=== PATIENT | female | born 1990 | race Caucasian/White ===

== ENCOUNTER → 2017-10-18 | Outpatient (CLI) | payer BC ==
[~2017-10-18] MED LIST: CITA40TA4; LISD70CA PO; MULT-506 PO
== END | disposition home or self-care (01) ==
LOC: C.LABPBG 12:00
PROVIDERS: ATTEND Obstetrics & Gynecology
DX: N92.6 Irregular menstruation, unspecified (principal)

== ENCOUNTER → 2017-10-19 | Outpatient (CLI) | payer BC | END | disposition home or self-care (01) | LOC: C.PAPS 18:13 | PROVIDERS: ATTEND Obstetrics & Gynecology | DX: Z01.419 Encounter for gynecological examination (general) (routine) without abnormal findings (principal) ==

== ENCOUNTER 2018-11-19 17:21 | Inpatient (IN) ==
[2018-11-19] MEDS ORDERED: OXYTOCIN 30 UNITS/500 ML BAG IV PRN (18:14)
[2018-11-19] MEDS ORDERED: miSOPROStol 200 MCG TAB PV ONE (18:21)
--- NOTE | 2018-11-19 19:14 | History & Physical Report ---
Date of Service November 19, 2018 Assessment & Plan (1) demise, greater than 22 weeks, antepartum, single gestation: Will induce labor with misoprostol. We will do an 800 mcg loading dose then 400 mg every 3 hours as needed to induce labor. Laboratory evaluation including a cell free DNA screen and torch titer have been ordered. Epidural for pain as needed. All questions answered of the patient. History of Present Illness Chief Complaint: demise Primary Care Provider: Masoud Castro MD The patient is a 28-year-old 2 para 0 at 24 weeks and 6 days who presents today for induction for demise. Patient was seen earlier today for decreased movement where the diagnosis was made. Treatment options were discussed and the patient presents today for induction Allergies Allergy/AdvReac Type Severity Reaction Status Date / Time codeine Allergy Verified 11/16/18 08:53 Home Medications Home Medications Medication Instructions Recorded Confirmed Type PNV cmb#95-ferrous fumarate-FA 1 tab PO QAM 07/27/18 11/16/18 History [] dicyclomine PO 11/16/18 11/16/18 History ranitidine 150 mg tablet 150 mg PO DAILY 11/16/18 11/16/18 History Patient History Medical History History of gastric ulcer No significant past medical history Varicella Surgical History S/P colonoscopy S/P endoscopy S/P wisdom tooth extraction Family History Grandmother (Maternal) Ovarian cancer Mother Hypothyroidism Multiple gestation Social History Preferred Language: [place] Portuguese Tutor Required: No marital status: Current Living Situation: Spouse Current Living Situation Comment: spouse, 3 dogs, 2 cats Other Information That Helps Us Care for You: No Feels Safe at Home: Yes Safety Concerns: Feels Safe At This Time Smoking Status: Former smoker Age Started Using Tobacco: 17 ; Age Quit Using Tobacco: 24 ; Hx Alcohol Use: No Hx Substance Use: No Physical Exam Constitutional: WD/WN, vitals as above Respiratory: Auscultation: lungs clear to auscultation bilaterally Cardiovascular: RRR, no murmur, no edema Extremities: no calf tenderness Genitourinary: Cervix: Long thick and closed, Results & Data Vital Signs (Past 12 Hours) Vital Signs Temp Resp 11/19/18 17:39 98.4 F 20
[2018-11-19 19:31] LABS: Hematocrit (blood only) 33.6 % (37-47); Hemoglobin 11.9 g/dL (12.0-16.0); Mean Corpuscular Volume 89.1 fL (80-100); Mean Platelet Volume 10.1 fL (7.4-10.4); Platelet Count 161 K/uL (130-400); RDW Coefficient of Variation 12.4 % (11.5-14.5); RDW Standard Deviation 39.5 fL (36.4-46.3); Red Blood Count 3.77 M/uL (4.2-5.4); White Blood Count 10.29 K/uL (4.8-10.8)
[2018-11-19 19:43] LABS: Mean Corpuscular Hgb Conc 35.4 g/dL (32-36)
[2018-11-19] MEDS: LACTATED RINGER'S 1,000 ML IV PRN ×2 (22:44→23:55)
[2018-11-19] MEDS ORDERED: ePHEDrine sulfate 50 MG/ML AMP ONE (22:54)
[2018-11-19] MEDS ORDERED: BUPIVACAINE 0.25% 30 ML VIAL ONE (22:54)
[2018-11-19] MEDS ORDERED: fentaNYL 2MCG/ML ROPIV 1.25MG/ML 100 ML BAG EPI ONE (22:55)
[2018-11-19] MEDS ORDERED: fentaNYL citrate 100 MCG/2 ML VIAL ONE (22:55)
[2018-11-19] MEDS ORDERED: PROMETHAZINE HCL 25 MG in SODIUM CHLORIDE 0.9% 50 ML IV PRN (23:21)
[2018-11-19] MEDS ORDERED: NALOXONE HCL 1 MG in SODIUM CHLORIDE 0.9% 1000ML 1,000 ML IV PRN (23:21)
[2018-11-19] MEDS ORDERED: DiphenhydrAMINE HCL 50 MG/ML VIAL IV PRN (23:21)
[2018-11-19] MEDS ORDERED: ePHEDrine sulfate 50 MG/ML AMP IV PRN (23:21)
[2018-11-19] MEDS ORDERED: MIDAZOLAM HCL 1 MG/ML 2ML VIAL ONE (23:21)
[2018-11-19] MEDS ORDERED: ONDANSETRON INJ 2 MG/ML 2 ML VIAL IV PRN (23:21)
[2018-11-19] MEDS ORDERED: NALOXONE HCL 0.4 MG/1 ML VIAL/CARP IV PRN (23:21)
[2018-11-19] MEDS ORDERED: NALBUPHINE HCL INJ 10 MG/ML AMP IV PRN (23:21)
--- NOTE | 2018-11-19 23:25 | Anesthesiology Consultation ---
Date of Service November 19, 2018 Assessment & Plan (1) Encounter for pre-operative examination: Chart Review Chart Review: Patient NOT seen in Pre Admission Testing Consults Requested none ASA ASA2 Proposed Anesthesia Anesthesia Type: Labor Epidural and CSE Risk / Benefits Reviewed With: PT / POA / Parent / Guardian, Accepts Plan and Informed Consent Obtained History Height/Weight Height: 5 ft 2 in Weight: 64.864 kg Allergies Allergy/AdvReac Type Severity Reaction Status Date / Time codeine Allergy Verified 11/16/18 08:53 Medications Home Medications Medication Instructions Recorded Confirmed Last Taken vit-iron fum-folic ac 1 tab PO DAILY 11/19/18 11/19/18 11/18/18 08:00 [ Vitamin] Active Medications Generic Name Dose Route Start Last Admin Trade Name Freq PRN Reason Stop Dose Admin Lactated Ringer's 1,000 mls @ 125 mls/hr 11/19/18 18:14 11/19/18 22:44 Lr IV 11/21/18 18:13 999 mls/hr .Q8H PRN Administration L&D Protocol Protocol NPO Date Last Intake of Fluids: 11/19/18 Time Last Intake of Fluids: 22:30 Date Last Intake of Solids: 11/19/18 Time Last Intake of Solids: 09:00 Past Medical History Medical History History of gastric ulcer No significant past medical history Varicella Exercise / Class Metabolic Activity II 4-5 Yardwork/Stairs/Walk up hill Past Family History Family History Grandmother (Maternal) Ovarian cancer Mother Hypothyroidism Multiple gestation Past Surgical History Surgical History S/P colonoscopy S/P endoscopy S/P wisdom tooth extraction Past Anesthesia History No Hx of Anesthesia Complications History of PONV No Hx of PONV and No Hx of Motion Sickness Social History Smoking Status: Former smoker Hx Alcohol Use: No Hx Substance Use: No substance use type: does not use Review of Systems no chest pain or sob Physical Exam Vital Signs Last Vital Signs Temp 37.0 C 11/19/18 19:23 Pulse 99 H 11/19/18 23:29 Resp 16 11/19/18 19:23 BP 116/63 11/19/18 23:19 Pulse Ox 98 11/19/18 23:29 Testing Laboratory Results 11/19/18 19:12
[2018-11-20] MEDS: miSOPROStol 200 MCG TAB PV PRN ×3 (00:12→11:09)
--- NOTE | 2018-11-20 00:15 | Labor Progress Brief Note ---
Date of Service November 20, 2018 Subjective Comfortable after epidural Assessment & Plan (1) demise, greater than 22 weeks, antepartum, single gestation: - doing well - continue with medication Physical Exam Genitourinary: Misoprostol 400mcg placed Results & Data Vital Signs (Past 12 Hours) Vital Signs Temp Pulse Resp BP Pulse Ox 11/20/18 00:10 103 H 159/58 H 11/20/18 00:09 100 H 100 11/20/18 00:08 93 H 109/52 L 11/20/18 00:04 97 H 99 11/19/18 23:59 102 H 108/57 L 96 11/19/18 23:57 97 H 104/59 L 11/19/18 23:55 102 H 107/56 L 11/19/18 23:54 103 H 97 11/19/18 23:53 90 110/68 11/19/18 23:51 100 H 108/59 L 11/19/18 23:49 103 H 120/63 96 11/19/18 23:47 102 H 115/60 11/19/18 23:45 100 H 112/58 L 11/19/18 23:44 103 H 96 11/19/18 23:43 106 H 111/58 L 11/19/18 23:41 105 H 118/58 L 94 11/19/18 23:39 105 H 98 11/19/18 23:34 127 H 99 11/19/18 23:29 99 H 98 11/19/18 23:24 100 H 99 11/19/18 23:19 92 H 116/63 98 11/19/18 19:23 98.6 F 97 H 16 109/68 11/19/18 17:39 98.4 F 20
[2018-11-20] MEDS ORDERED: MIDAZOLAM HCL 1 MG/ML 2ML VIAL IV STA (00:26)
[2018-11-20] MEDS ORDERED: ACETAMINOPHEN 325 MG TAB PO PRN ×2 (04:28→17:00)
[2018-11-20] MEDS ORDERED: ACETAMINOPHEN 325 MG TAB PO ONE (04:30)
[2018-11-20] MEDS: LACTATED RINGER'S 1,000 ML IV PRN ×2 (05:28→11:46)
--- NOTE | 2018-11-20 06:37 | Labor Progress Brief Note ---
Date of Service November 20, 2018 Subjective no c/o Assessment & Plan (1) demise, greater than 22 weeks, antepartum, single gestation: - pt with elevated temperature - likely side effect of high dose cytotec - tylenol for fever - continue plan - doing well Physical Exam Genitourinary: Cervix: 1/50%, cytotec 400mcg placed Results & Data Vital Signs (Past 12 Hours) Vital Signs Temp Pulse Resp BP Pulse Ox 11/20/18 06:29 106 H 111/63 96 11/20/18 06:24 104 H 95 11/20/18 06:19 109 H 95 11/20/18 06:15 127 H 94/60 L 11/20/18 06:14 133 H 96 11/20/18 06:09 111 H 96 11/20/18 06:04 103 H 96 11/20/18 06:00 18 11/20/18 05:59 110 H 110/58 L 95 11/20/18 05:54 111 H 96 11/20/18 05:49 107 H 95 11/20/18 05:44 106 H 117/58 L 95 11/20/18 05:39 103 H 95 11/20/18 05:34 104 H 95 11/20/18 05:30 102.9 F H 18 11/20/18 05:29 120 H 121/58 L 96 11/20/18 05:24 109 H 97 11/20/18 05:19 111 H 96 11/20/18 05:14 113 H 116/62 96 11/20/18 05:09 106 H 95 11/20/18 05:04 107 H 95 11/20/18 05:00 100 H 18 114/55 L 11/20/18 04:59 103 H 95 11/20/18 04:54 99 H 95 11/20/18 04:49 101 H 96 11/20/18 04:45 96 H 117/59 L 11/20/18 04:44 97 H 96 11/20/18 04:39 94 H 95 11/20/18 04:34 106 H 96 11/20/18 04:30 20 11/20/18 04:29 98 H 109/55 L 94 11/20/18 04:24 95 H 94 11/20/18 04:19 94 H 95 11/20/18 04:14 97 H 112/59 L 95 11/20/18 04:10 102.7 F H 20 11/20/18 04:09 98 H 95 11/20/18 04:04 120 H 96 11/20/18 03:59 101 H 114/57 L 95 11/20/18 03:54 118 H 96 11/20/18 03:49 104 H 95 11/20/18 03:44 99 H 108/55 L 95 11/20/18 03:39 101 H 94 11/20/18 03:34 97 H 95 11/20/18 03:30 96 H 111/56 L 11/20/18 03:29 99 H 96 11/20/18 03:24 101 H 96 11/20/18 03:19 102 H 95 11/20/18 03:15 102.6 F H 91 H 16 116/56 L 11/20/18 03:14 99 H 96 11/20/18 03:09 99 H 95 11/20/18 03:04 103 H 95 11/20/18 03:00 16 11/20/18 02:59 96 H 107/55 L 96 11/20/18 02:54 92 H 95 11/20/18 02:49 116 H 96 11/20/18 02:47 105 H 120/54 L 11/20/18 02:44 106 H 98/49 L 95 11/20/18 02:39 101 H 95 11/20/18 02:34 101 H 95 11/20/18 02:29 100 H 99/52 L 94 11/20/18 02:24 95 H 94 11/20/18 02:19 97 H 95 11/20/18 02:14 97 H 95/53 L 95 11/20/18 02:09 96 H 95 11/20/18 02:04 94 H 95 11/20/18 02:00 16 11/20/18 01:59 95 H 96/50 L 95 11/20/18 01:54 97 H 95 11/20/18 01:49 90 96 11/20/18 01:45 100 H 100/54 L 11/20/18 01:44 94 H 96 11/20/18 01:39 89 96 11/20/18 01:34 90 97 11/20/18 01:29 91 H 93/55 L 98 11/20/18 01:24 88 97 11/20/18 01:19 91 H 97 11/20/18 01:14 91 H 95/54 L 97 11/20/18 01:09 86 97 11/20/18 01:04 87 99 11/20/18 01:00 16 11/20/18 00:59 90 93/54 L 99 11/20/18 00:54 85 98 11/20/18 00:49 100 H 97 11/20/18 00:44 88 106/56 L 98 11/20/18 00:39 87 98 11/20/18 00:34 84 98 11/20/18 00:29 85 16 106/58 L 98 11/20/18 00:24 87 96 11/20/18 00:19 88 97 11/20/18 00:14 92 H 108/57 L 96 11/20/18 00:10 103 H 159/58 H 11/20/18 00:09 100 H 100 11/20/18 00:08 93 H 109/52 L 11/20/18 00:04 97 H 99 11/19/18 23:59 102 H 16 108/57 L 96 11/19/18 23:57 97 H 104/59 L 11/19/18 23:55 102 H 107/56 L 11/19/18 23:54 103 H 97 11/19/18 23:53 90 110/68 11/19/18 23:51 100 H 108/59 L 11/19/18 23:49 103 H 120/63 96 11/19/18 23:47 102 H 115/60 11/19/18 23:45 100 H 112/58 L 11/19/18 23:44 103 H 96 11/19/18 23:43 106 H 111/58 L 11/19/18 23:41 105 H 118/58 L 94 11/19/18 23:39 105 H 98 11/19/18 23:34 127 H 99 11/19/18 23:29 99 H 98 11/19/18 23:24 100 H 99 11/19/18 23:19 100.0 F H 92 H 18 116/63 98 11/19/18 19:23 98.6 F 97 H 16 109/68
[2018-11-20] MEDS: fentaNYL 2MCG/ML ROPIV 1.25MG/ML 100 ML BAG EPI PRN ×2 (08:08→13:46)
[2018-11-20] MEDS: ACETAMINOPHEN 325 MG TAB PO SCH ×2 (08:47→13:12)
[2018-11-20] MEDS ORDERED: LORazepam 1 MG TAB PO STA (11:21)
--- NOTE | 2018-11-20 11:22 | Labor Progress Brief Note ---
Date of Service November 20, 2018 Subjective Feeling crampy on L side; will reposition to allow epidural to become more dense on that side. Has many questions, appropriate tearfulness. Emotional support provided. Accepts check of cervix and next dose of cytotec if needed. Expresses interest in leaving hospital as soon as is safe after delivery. Interested in ativan if able to have; says she "Doesn't want to feel this anymore" and was given ativan by PCP that she has with her and wanted to take. Discussed using hospital med and not home meds but glad to prescribe for her comfort. Assessment & Plan (1) demise, greater than 22 weeks, antepartum, single gestation: Continued fever likely due to cytotec in high doses per IUFD induction. No symptoms of chills, no odor vaginally, no acute distress. Emotionally appropriate with supportive and railway shunter at bedside. Progressing now to near the point of delivery. Suspect that rupture will soon occur, and patient counseled to expect this gush of fluid. She will notify us if she feels that happen as she is also counseled that progress from that point may be rapid. If needed, plan is 400mcg again in 4 hours. Physical Exam Genitourinary: Manual OB Exam: + cervical dilation 8 cm, + cervical effacement 100% and + station (Taut bulging bag to +1, unable to palpate presenting part w/o risk rupture) OB Exam Monitor Tracing: + external uterine monitor used Results & Data Vital Signs (Past 12 Hours) Vital Signs Temp Pulse Resp BP Pulse Ox 11/20/18 11:16 100 H 120/65 11/20/18 11:15 101 H 95 11/20/18 11:10 103 H 95 11/20/18 11:05 113 H 96 11/20/18 11:00 104 H 96 11/20/18 10:55 98 H 94 11/20/18 10:50 99 H 96 11/20/18 10:46 97 H 117/63 11/20/18 10:45 97 H 96 11/20/18 10:40 104 H 94 11/20/18 10:35 104 H 95 11/20/18 10:30 108 H 95 11/20/18 10:25 99 H 96 11/20/18 10:21 95 H 106/63 09/02/19 10:20 105 H 95 11/20/18 10:15 115 H 97 11/20/18 10:10 91 H 96 11/20/18 10:05 96 H 95 11/20/18 10:00 94 H 95 11/20/18 09:55 99 H 95 11/20/18 09:50 92 H 95 11/20/18 09:47 91 H 118/56 L 11/20/18 09:45 94 H 96 11/20/18 09:40 89 95 11/20/18 09:35 89 95 11/20/18 09:30 96 H 96 11/20/18 09:25 101 H 96 11/20/18 09:20 104 H 96 11/20/18 09:15 96 H 115/59 L 97 11/20/18 09:10 92 H 97 11/20/18 09:05 92 H 96 11/20/18 09:00 98 H 97 11/20/18 08:55 99 H 95 11/20/18 08:50 101 H 95 11/20/18 08:45 96 H 95 11/20/18 08:44 108 H 113/58 L 11/20/18 08:40 100 H 96 11/20/18 08:35 97 H 95 11/20/18 08:30 97 H 97 11/20/18 08:29 92 H 110/56 L 11/20/18 08:25 102 H 96 11/20/18 08:20 91 H 94 11/20/18 08:15 102.0 F H 101 H 20 114/59 L 96 11/20/18 08:10 93 H 96 11/20/18 08:05 96 H 96 11/20/18 08:00 93 H 96 11/20/18 07:59 93 H 113/63 11/20/18 07:55 98 H 97 11/20/18 07:50 102 H 95 11/20/18 07:44 94 H 114/62 96 11/20/18 07:39 98 H 96 11/20/18 07:34 112 H 96 11/20/18 07:29 104 H 114/62 97 11/20/18 07:24 94 H 95 11/20/18 07:19 98 H 95 11/20/18 07:14 97 H 116/59 L 95 11/20/18 07:09 104 H 96 11/20/18 07:04 102 H 97 11/20/18 07:01 102.6 F H 22 11/20/18 06:59 102 H 111/59 L 96 11/20/18 06:54 100 H 96 11/20/18 06:49 114 H 96 11/20/18 06:44 105 H 113/62 96 11/20/18 06:39 107 H 96 11/20/18 06:34 110 H 96 11/20/18 06:29 106 H 111/63 96 11/20/18 06:24 104 H 95 11/20/18 06:19 109 H 95 11/20/18 06:15 127 H 94/60 L 11/20/18 06:14 133 H 96 11/20/18 06:09 111 H 96 11/20/18 06:04 103 H 96 11/20/18 06:00 18 11/20/18 05:59 110 H 110/58 L 95 11/20/18 05:54 111 H 96 11/20/18 05:49 107 H 95 11/20/18 05:44 106 H 117/58 L 95 11/20/18 05:39 103 H 95 11/20/18 05:34 104 H 95 11/20/18 05:30 102.9 F H 18 11/20/18 05:29 120 H 121/58 L 96 11/20/18 05:24 109 H 97 11/20/18 05:19 111 H 96 11/20/18 05:14 113 H 116/62 96 11/20/18 05:09 106 H 95 11/20/18 05:04 107 H 95 11/20/18 05:00 100 H 18 114/55 L 11/20/18 04:59 103 H 95 11/20/18 04:54 99 H 95 11/20/18 04:49 101 H 96 11/20/18 04:45 96 H 117/59 L 11/20/18 04:44 97 H 96 11/20/18 04:39 94 H 95 11/20/18 04:34 106 H 96 11/20/18 04:30 20 11/20/18 04:29 98 H 109/55 L 94 11/20/18 04:24 95 H 94 11/20/18 04:19 94 H 95 11/20/18 04:14 97 H 112/59 L 95 11/20/18 04:10 102.7 F H 20 11/20/18 04:09 98 H 95 11/20/18 04:04 120 H 96 11/20/18 03:59 101 H 114/57 L 95 11/20/18 03:54 118 H 96 11/20/18 03:49 104 H 95 11/20/18 03:44 99 H 108/55 L 95 11/20/18 03:39 101 H 94 11/20/18 03:34 97 H 95 11/20/18 03:30 96 H 111/56 L 11/20/18 03:29 99 H 96 11/20/18 03:24 101 H 96 11/20/18 03:19 102 H 95 11/20/18 03:15 102.6 F H 91 H 16 116/56 L 11/20/18 03:14 99 H 96 11/20/18 03:09 99 H 95 11/20/18 03:04 103 H 95 11/20/18 03:00 11/20/18 02:59 96 H 107/55 L 96 11/20/18 02:54 92 H 95 11/20/18 02:49 116 H 96 11/20/18 02:47 105 H 120/54 L 11/20/18 02:44 106 H 98/49 L 95 11/20/18 02:39 101 H 95 11/20/18 02:34 101 H 95 11/20/18 02:29 100 H 99/52 L 94 11/20/18 02:24 95 H 94 11/20/18 02:19 97 H 95 11/20/18 02:14 97 H 95/53 L 95 11/20/18 02:09 96 H 95 11/20/18 02:04 94 H 95 11/20/18 02:00 16 11/20/18 01:59 95 H 96/50 L 95 11/20/18 01:54 97 H 95 11/20/18 01:49 90 96 11/20/18 01:45 100 H 100/54 L 11/20/18 01:44 94 H 96 11/20/18 01:39 89 96 11/20/18 01:34 90 97 11/20/18 01:29 91 H 93/55 L 98 11/20/18 01:24 88 97 11/20/18 01:19 91 H 97 11/20/18 01:14 91 H 95/54 L 97 11/20/18 01:09 86 97 11/20/18 01:04 87 99 11/20/18 01:00 16 11/20/18 00:59 90 93/54 L 99 11/20/18 00:54 85 98 11/20/18 00:49 100 H 97 11/20/18 00:44 88 106/56 L 98 11/20/18 00:39 87 98 11/20/18 00:34 84 98 11/20/18 00:29 85 16 106/58 L 98 11/20/18 00:24 87 96 11/20/18 00:19 88 97 11/20/18 00:14 92 H 108/57 L 96 11/20/18 00:10 103 H 159/58 H 11/20/18 00:09 100 H 100 11/20/18 00:08 93 H 109/52 L 11/20/18 00:04 97 H 99 11/19/18 23:59 102 H 16 108/57 L 96 11/19/18 23:57 97 H 104/59 L 11/19/18 23:55 102 H 107/56 L 11/19/18 23:54 103 H 97 11/19/18 23:53 90 110/68 11/19/18 23:51 100 H 108/59 L 11/19/18 23:49 103 H 120/63 96 11/19/18 23:47 102 H 115/60 11/19/18 23:45 100 H 112/58 L 11/19/18 23:44 103 H 96 11/19/18 23:43 106 H 111/58 L 11/19/18 23:41 105 H 118/58 L 94 11/19/18 23:39 105 H 98 11/19/18 23:34 127 H 99 11/19/18 23:29 99 H 98 11/19/18 23:24 100 H 99 11/19/18 23:19 100.0 F H 92 H 18 116/63 98
[2018-11-20] MEDS ORDERED: OXYTOCIN IV SCH (15:30)
[2018-11-20] MEDS ORDERED: LACTATED RINGER S IV SCH (15:30)
--- NOTE | 2018-11-20 15:38 | Delivery Summary ---
Vaginal Delivery Summary Date of Service November 20, 2018 Patient was examined and head of the infant was found to be at the labia. She was prepped for delivery and asked to give a pushing effort. She did push well and promptly delivered the head, shoulders, and remainder of the nonviable infant in a single effort. There were no signs of life in the . The infant appeared mildly macerated, with some cranial molding vs deformity. The amniotic fluid was slightly bloody and only mildly malodorous. The cord was clamped and cut. Dilute pitocin (100u in 1L) was ordered IV to aid in passage of the placenta. The patient was counseled that passage of the placenta may occur in minutes or hours, with a wide range of normal. The cord remains protruding from the vagina and terminated at a Alesha clamp. She is currently comfortable and she and her are grieving appropriately. Emotional support provided. Patient returned to a semi-maza's resting position, re- covered for modesty and comfort, and remains in good condition at this time.
[2018-11-20] MEDS ORDERED: SUPERCREAM 0.870% 15 GM JAR EXT PRN (17:00)
[2018-11-20] MEDS ORDERED: BENZOCAINE 20% AER SPR 82.5 GM CAN EXT PRN (17:00)
[2018-11-20] MEDS ORDERED: DIPHTHERIA/TETANUS/PERTUSSIS 0.5 ML SYR/VIAL IM ONE (17:00)
[2018-11-20] MEDS ORDERED: OXYCODONE/ACETAMINOPHEN 5mg/325mg TAB PO PRN (17:00)
[2018-11-20] MEDS ORDERED: HYDROCORTISONE ACETATE 25 MG SUPP PR PRN (17:00)
[2018-11-20 17:41] LABS: Hematocrit (blood only) 32.9 % (37-47); Hemoglobin 11.6 g/dL (12.0-16.0); Mean Corpuscular Hgb Conc 35.3 g/dL (32-36); Mean Corpuscular Volume 88.2 fL (80-100); RDW Coefficient of Variation 12.3 % (11.5-14.5); RDW Standard Deviation 39.2 fL (36.4-46.3); Red Blood Count 3.73 M/uL (4.2-5.4); White Blood Count 13.41 K/uL (4.8-10.8)
[2018-11-20 18:06] LABS: Mean Platelet Volume 10.4 fL (7.4-10.4); Platelet Count 95 K/uL (130-400)
[2018-11-20 18:07] LABS: Platelet Estimate Decreased (Normal)
[2018-11-20 19:22] LABS: Albumin Level 2.1 gm/dl (3.4-5.0); BUN Creatinine Ratio 13.7 (10-20); Calcium 8.1 mg/dl (8.5-10.1); Creatinine Clr Calc Pharmacy 80.5 ml/min; Est GFR (African American) 98.2; Est GFR (Non-African American) 84.7
[2018-11-20 19:25] LABS: Albumin Globulin Ratio 0.6 (0.9-2); Bilirubin,Total 0.7 mg/dl (0.2-1); Globulin 3.4 gm/dl (2.5-4.0); Total Protein 5.5 gm/dl (6.4-8.2)
--- NOTE | 2018-11-20 19:27 | Procedure Note ---
Procedure Note Date of Service November 20, 2018 Note WBC noted to be similar to earlier values, and suggest that fevers are truly 2/2 cytotec rather than infection. However, platelets noted to drop to 95. At this point I am concerned about DIC and also want to r/o preeclampsia. CMP, PT/PTT, INR, Fibrinogen ordered. Explained to patient I prefer to remove the remaining tissue without delay to interrupt any inflammatory process that may be driving a DIC picture. She is in agreement with attempt of manual removal and with D&C if needed. Epidural anesthesia in place. She requested that every possible attempt be made to avoid a transfer into an OR environment. Vagina and perineum prepped with betadine. A ring forcep was used to grasp a tip of placenta protruding into vagina, but this easily detached and did not result in delivery. Bedside ultrasound and banjo curette were readied, and a D&C was gently carried out under US guidance to retrieve the placenta. Several passes were required to deliver the entirety of the placenta, which was largely in one disk but did also yield a few smaller pieces and membranous tissue. At the end of curettage the uterus was empty and well contracted to 3cm below the umbilicus with no active lochia. The patient tolerated this extremely well. Placenta will be sent for pathology exam. Coding
[2018-11-20 19:28] LABS: Fibrinogen 176 mg/dl (184-400); INR 1.1 (0.9-1.1); Partial Thromboplastin Ratio 1.5; Partial Thromboplastin Time 41.6 Seconds (21.0-31.0); Prothrombin Time 11.6 Seconds (9.0-12.0)
--- NOTE | 2018-11-20 19:58 | Obstetrical Progress Note ---
Date of Service November 20, 2018 Assessment & Plan (1) demise, greater than 22 weeks, antepartum, single gestation: Now delivered of all POC. Labs, however, noted to show signs of consumptive coagulopathy with a low fibrinogen, as well as mild LFT elevation and a relative rise in creatinine. DIC can be precipitated by IUFD in situ and hopefully will show improvement now that all tissue removed and cytokine release / necrosis should stop. Also, It is difficult to say that she has preeclampsia with completely normal BP and good urine output, but these changes in labs are noted. Currently the patient is having minimal to no lochia and no other bleeding, so will observe for now and repeat all labs in 6 hours. Present on Admission?: Yes Subjective Patient is clinically stable per RN. No excessive lochia at this time. VSS. Results & Data Vital Signs (Past 12 Hours) Vital Signs Temp Pulse Resp BP Pulse Ox 11/20/18 19:41 70 123/79 11/20/18 19:26 76 121/81 11/20/18 19:20 71 93 11/20/18 19:15 80 94 11/20/18 19:10 81 93 11/20/18 19:05 75 93 11/20/18 19:00 76 94 11/20/18 18:55 85 94 11/20/18 18:50 80 94 11/20/18 18:46 80 119/73 11/20/18 18:45 81 93 11/20/18 17:55 100.0 F H 11/20/18 17:52 86 114/58 L 11/20/18 17:51 104 H 91 11/20/18 17:50 86 92 11/20/18 17:45 101 H 91 11/20/18 17:40 85 90 11/20/18 17:35 85 91 11/20/18 17:30 87 91 11/20/18 17:25 87 91 11/20/18 17:21 90 92 11/20/18 17:20 90 92 11/20/18 17:16 90 92 11/20/18 17:15 95 H 93 11/20/18 17:10 86 91 11/20/18 17:05 85 92 11/20/18 17:00 85 92 11/20/18 16:55 110 H 92 11/20/18 16:50 94 H 94 11/20/18 16:46 104 H 113/59 L 92 11/20/18 16:45 99 H 93 11/20/18 16:40 101 H 92 11/20/18 16:35 101 H 93 11/20/18 16:30 90 91 11/20/18 16:25 88 91 11/20/18 16:20 86 91 11/20/18 16:18 89 91 11/20/18 16:15 93 H 122/66 94 11/20/18 16:12 91 H 92 11/20/18 16:10 87 93 11/20/18 16:05 89 92 11/20/18 16:03 91 H 92 11/20/18 16:00 88 92 11/20/18 15:57 84 92 11/20/18 15:55 85 94 11/20/18 15:50 83 94 11/20/18 15:46 88 127/69 11/20/18 15:45 86 94 11/20/18 15:40 117 H 96 11/20/18 15:35 93 H 95 11/20/18 15:30 102 H 93 11/20/18 15:25 98 H 96 11/20/18 15:20 94 H 95 11/20/18 15:15 87 114/57 L 95 11/20/18 15:10 87 93 11/20/18 15:08 100.4 F H 18 11/20/18 15:05 91 H 95 11/20/18 15:00 86 94 11/20/18 14:55 105 H 97 11/20/18 14:50 88 97 11/20/18 14:45 82 112/57 L 96 11/20/18 14:40 83 94 11/20/18 14:35 85 94 11/20/18 14:30 85 95 11/20/18 14:25 90 96 11/20/18 14:20 87 95 11/20/18 14:15 83 107/55 L 97 11/20/18 14:10 106 H 97 11/20/18 14:05 94 H 96 11/20/18 14:00 99 H 96 11/20/18 13:55 93 H 95 11/20/18 13:50 97 H 96 11/20/18 13:46 100.2 F H 98 H 20 128/68 11/20/18 13:45 100 H 96 11/20/18 13:40 101 H 97 11/20/18 13:35 99 H 96 11/20/18 13:30 97 H 95 11/20/18 13:25 108 H 96 11/20/18 13:20 125 H 95 11/20/18 13:15 106 H 136/81 97 11/20/18 13:10 91 H 94 11/20/18 13:05 89 93 11/20/18 13:00 94 H 96 11/20/18 12:55 84 93 11/20/18 12:50 85 93 11/20/18 12:46 85 120/62 11/20/18 12:45 87 95 11/20/18 12:40 84 94 11/20/18 12:35 84 93 11/20/18 12:30 83 94 11/20/18 12:25 90 95 11/20/18 12:20 88 95 11/20/18 12:17 82 120/63 11/20/18 12:15 95 H 97 11/20/18 12:10 94 H 96 11/20/18 12:05 91 H 96 11/20/18 12:00 95 H 95 11/20/18 11:55 97 H 93 11/20/18 11:50 94 H 94 11/20/18 11:48 101.7 F H 20 11/20/18 11:46 93 H 118/60 11/20/18 11:45 90 94 11/20/18 11:40 108 H 95 11/20/18 11:35 123 H 96 11/20/18 11:30 104 H 96 11/20/18 11:25 100 H 94 11/20/18 11:20 102 H 96 11/20/18 11:16 100 H 120/65 11/20/18 11:15 101 H 95 11/20/18 11:10 103 H 95 11/20/18 11:05 113 H 96 11/20/18 11:00 104 H 96 11/20/18 10:55 98 H 94 11/20/18 10:50 99 H 96 11/20/18 10:46 97 H 117/63 11/20/18 10:45 97 H 96 11/20/18 10:40 104 H 94 11/20/18 10:35 104 H 95 11/20/18 10:30 108 H 95 11/20/18 10:25 99 H 96 11/20/18 10:21 95 H 106/63 11/20/18 10:20 105 H 95 11/20/18 10:15 115 H 97 11/20/18 10:10 91 H 96 11/20/18 10:05 96 H 95 11/20/18 10:00 94 H 95 11/20/18 09:55 99 H 95 11/20/18 09:50 92 H 95 11/20/18 09:47 91 H 118/56 L 11/20/18 09:45 94 H 96 11/20/18 09:40 89 95 11/20/18 09:35 89 95 11/20/18 09:30 96 H 96 11/20/18 09:25 101 H 96 11/20/18 09:20 104 H 96 11/20/18 09:15 96 H 115/59 L 97 11/20/18 09:10 92 H 97 11/20/18 09:05 92 H 96 11/20/18 09:00 98 H 97 11/20/18 08:55 99 H 95 11/20/18 08:50 101 H 95 11/20/18 08:45 96 H 95 11/20/18 08:44 108 H 113/58 L 11/20/18 08:40 100 H 96 11/20/18 08:35 97 H 95 11/20/18 08:30 97 H 97 11/20/18 08:29 92 H 110/56 L 11/20/18 08:25 102 H 96 11/20/18 08:20 91 H 94 11/20/18 08:15 102.0 F H 101 H 20 114/59 L 96 11/20/18 08:10 93 H 96 11/20/18 08:05 96 H 96 11/20/18 08:00 93 H 96 11/20/18 07:59 93 H 113/63 11/20/18 07:55 98 H 97 Laboratory Results Laboratory Results WBC 13.41 K/uL (4.8-10.8) H 11/20/18 17:17 RBC 3.73 M/uL (4.2-5.4) L 11/20/18 17:17 Hgb 11.6 g/dL (12.0-16.0) L 11/20/18 17:17 Hct 32.9 % (37-47) L 11/20/18 17:17 MCV 88.2 fL (80-100) 11/20/18 17:17 MCH 31.1 pg (25-34) 11/20/18 17:17 MCHC 35.3 g/dL (32-36) 11/20/18 17:17 RDW Std Deviation 39.2 fL (36.4-46.3) 11/20/18 17:17 RDW Coeff of [place] 12.3 % (11.5-14.5) 11/20/18 17:17 Plt Count 95 K/uL (130-400) L 11/20/18 17:17 MPV 10.4 fL (7.4-10.4) 11/20/18 17:17 Platelet Estimate Decreased (Normal) L 11/20/18 17:17 PT 11.6 Seconds (9.0-12.0) 11/20/18 18:49 INR 1.1 (0.9-1.1) 11/20/18 18:49 APTT 41.6 Seconds (21.0-31.0) H 11/20/18 18:49 PTT Ratio 1.5 11/20/18 18:49 Fibrinogen 176 mg/dl (184-400) L 11/20/18 18:49 Sodium 137 mmol/L (136-145) 11/20/18 18:54 Potassium 3.0 mmol/L (3.5-5.1) L 11/20/18 18:54 Chloride 105 mmol/L (98-107) 11/20/18 18:54 Carbon Dioxide 24 mmol/L (21-32) 11/20/18 18:54 Anion Gap 9.0 (3-11) 11/20/18 18:54 BUN 13 mg/dl (7-18) 11/20/18 18:54 Creatinine 0.92 mg/dl (0.6-1.2) 11/20/18 18:54 Est Cr Clr Drug Dosing 80.5 ml/min 11/20/18 18:54 Est GFR ( Amer) 98.2 11/20/18 18:54 Est GFR (Non-Af Amer) 84.7 11/20/18 18:54 BUN/Creatinine Ratio 13.7 (10-20) 11/20/18 18:54 Glucose 110 mg/dl (70-99) H 11/20/18 18:54 Calcium 8.1 mg/dl (8.5-10.1) L 11/20/18 18:54 Total Bilirubin 0.7 mg/dl (0.2-1) 11/20/18 18:54 AST 48 U/L (15-37) H 11/20/18 18:54 ALT 15 U/L (12-78) 11/20/18 18:54 Alkaline Phosphatase 135 U/L (45-117) H 11/20/18 18:54 Total Protein 5.5 gm/dl (6.4-8.2) L 11/20/18 18:54 Albumin 2.1 gm/dl (3.4-5.0) L 11/20/18 18:54 Globulin 3.4 gm/dl (2.5-4.0) 11/20/18 18:54 Albumin/Globulin Ratio 0.6 (0.9-2) L 11/20/18 18:54 CMV IgM Ab Cancelled 11/19/18 19:12 HSV I IgM Ab (IFA) Cancelled 11/19/18 19:12 HSV II IgM Ab (IFA) Cancelled 11/19/18 19:12 Rubella IgM Antibody Cancelled 11/19/18 19:12 Toxoplasma IgG Ab Cancelled 11/19/18 19:12 Toxoplasma IgM Ab Cancelled 11/19/18 19:12 Toxoplasma Note Cancelled 11/19/18 19:12 Genetic Analysis Reprt 11/19/18 19:12 PG Care Time/CCT Total # of Minutes Spent Total Time Spent with Patient: Total time spent is greater than 50% in coordination of care (as documented) at patient's floor/unit and/or counseling patient:
--- NOTE | 2018-11-20 20:56 | Anesthesia Procedure Note ---
Date of Service November 20, 2018 Anesthesia Post Epidural Note Vital Signs Vital Signs: Temp Pulse Resp BP Pulse Ox 37.8 C H 76 18 108/73 93 11/20/18 17:55 11/20/18 20:41 11/20/18 20:26 11/20/18 20:41 11/20/18 19:20 Pain Intensity Left Abdomen: Pain Intensity: 4 Notes Mental Status: alert / awake / arousable and participated in evaluation Patient Amnestic to Procedure: No Nausea / Vomiting: adequately controlled Pain: adequately controlled Airway Patency, RR, SpO2: stable & adequate BP & HR: stable & adequate Hydration State: stable & adequate Neuraxial Anesthesia: was administered and sensory block is resolving Anesthetic Complications: no major complications apparent and Pt Satisfied with anesthetic care Epidural: See Notes Notes: patient with low platelets, elevated ptt, low fibrinogen. pt being monitored overnight to ensure no DIC. Will keep epidural in place until labs normalize in order to decrease risk of epidural hematoma with epidural removal. will continue to monitor.
[2018-11-21] MEDS: IBUPROFEN 600 MG TAB PO PRN ×2 (01:06→07:59)
[2018-11-21 02:20] LABS: Hemoglobin 11.8 g/dL (12.0-16.0); Mean Corpuscular Hgb Conc 35.8 g/dL (32-36); Mean Corpuscular Volume 87.3 fL (80-100); Mean Platelet Volume 9.6 fL (7.4-10.4); Platelet Count 85 K/uL (130-400); RDW Coefficient of Variation 12.4 % (11.5-14.5); RDW Standard Deviation 39.7 fL (36.4-46.3); Red Blood Count 3.78 M/uL (4.2-5.4); White Blood Count 20.58 K/uL (4.8-10.8)
[2018-11-21 02:22] LABS: INR 1.2 (0.9-1.1); Partial Thromboplastin Ratio 1.2; Partial Thromboplastin Time 33.5 Seconds (21.0-31.0); Prothrombin Time 11.7 Seconds (9.0-12.0)
[2018-11-21 02:35] LABS: Fibrinogen 172 mg/dl (184-400)
[2018-11-21 02:38] LABS: Albumin Globulin Ratio 0.6 (0.9-2); Albumin Level 2.1 gm/dl (3.4-5.0); Calcium 8.7 mg/dl (8.5-10.1); Creatinine Clr Calc Pharmacy 90.3 ml/min; Est GFR (African American) 112.9; Est GFR (Non-African American) 97.4; Globulin 3.3 gm/dl (2.5-4.0); Potassium 3.5 mmol/L (3.5-5.1); Total Protein 5.4 gm/dl (6.4-8.2)
[2018-11-21 06:26] LABS: Hematocrit (blood only) 33.8 % (37-47); Hemoglobin 12.2 g/dL (12.0-16.0); Mean Corpuscular Hgb Conc 36.1 g/dL (32-36); Mean Corpuscular Volume 88.3 fL (80-100); RDW Coefficient of Variation 12.5 % (11.5-14.5); RDW Standard Deviation 40.4 fL (36.4-46.3); Red Blood Count 3.83 M/uL (4.2-5.4); White Blood Count 20.39 K/uL (4.8-10.8)
[2018-11-21 06:39] LABS: Mean Platelet Volume 9.7 fL (7.4-10.4); Platelet Count 76 K/uL (130-400)
[2018-11-21 06:54] LABS: BUN Creatinine Ratio 16.5 (10-20); Calcium 8.9 mg/dl (8.5-10.1); Creatinine Clr Calc Pharmacy 107.3 ml/min; Est GFR (African American) 137.3; Est GFR (Non-African American) 118.5; Potassium 3.4 mmol/L (3.5-5.1)
[2018-11-21 06:57] LABS: Albumin Globulin Ratio 0.6 (0.9-2); Bilirubin,Total 0.7 mg/dl (0.2-1); Globulin 3.3 gm/dl (2.5-4.0); Total Protein 5.3 gm/dl (6.4-8.2)
[2018-11-21 06:59] LABS: INR 1.1 (0.9-1.1); Partial Thromboplastin Ratio 1.2; Partial Thromboplastin Time 32.5 Seconds (21.0-31.0)
[2018-11-21 07:16] LABS: Fibrinogen 230 mg/dl (184-400)
--- NOTE | 2018-11-21 07:18 | Obstetrical Progress Note ---
Date of Service November 21, 2018 Assessment & Plan (1) demise, greater than 22 weeks, antepartum, single gestation: Patient is PPD#1 from delivery of 25wk demise with D&C for retained placenta. Laboratory evidence of bumped creatinine and AST, but with negative protein dip on morning of 11/19 and normal BP at all times as well as no signs/symptoms of preeclampsia, so I doubt that diagnosis. Laboratory evidence of low platelets, very low fibrinogen, and bumped INR that were suggestive of DIC / consumptive coagulopathy process secondary to IUFD. Patient has been clinically well without excessive lochia or any spontaneous bleeding from nose/gums/IV sites. She has continued to drop platelets down to 76 now, and therefore her epidural catheter has not been able to be pulled yet per anesthesia. Because there is no abnormal bleeding I have not given any blood products, and with passage of time after removal of the POCs I do expect spontaneous improvement in coags, which we are following with serial lab assessment. Appropriate grieving process continues. Present on Admission?: Yes Subjective Ambulation: ambulating normally Voiding: no voiding problems Passing Gas:: Yes Diet Tolerance:: regular diet Lochia:: Small Physical Exam Constitutional WD/WN, vitals as above Eyes PERRL, conjunctivae normal, anicteric sclerae ENMT external ear and nose normal, oropharynx normal Neck trachea midline, no thyromegaly Respiratory normal respiratory effort and able to speak in complete sentences; no respiratory distress, no labored breathing and does not use accessory muscles Cardiovascular Rate/Rhythm: regular rate and regular rhythm Extremities: no calf tenderness and no pedal edema Gastrointestinal (Abdomen) Inspection/Auscultation: abdomen normal to inspection; abdomen not distended Musculoskeletal no cyanosis or clubbing, extremities motor strength 5/5 Skin no rashes, warm and dry Neurologic patellar DTR's 2+ bilat, sensation intact Psychiatric A+Ox3, euthymic affect Genitourinary Speculum/Bimanual Exam: uterus nontender OB Exam Abdomen: + fundal height (3 below umbilicus) Fundus: + firm Results & Data Vital Signs (Past 12 Hours) Vital Signs Temp Pulse Resp BP Pulse Ox 11/21/18 05:28 97.7 F 66 18 103/60 11/21/18 02:50 97.9 F 72 16 115/68 11/21/18 01:01 98.6 F 78 16 119/71 11/20/18 22:47 98.6 F 85 18 115/59 L 11/20/18 21:27 98.6 F 85 18 116/62 11/20/18 21:01 77 119/75 11/20/18 20:41 76 108/73 11/20/18 20:26 69 18 119/73 11/20/18 20:11 67 18 118/70 11/20/18 19:57 75 18 107/65 11/20/18 19:41 70 123/79 11/20/18 19:26 76 121/81 11/20/18 19:20 71 93
[2018-11-21] MEDS ORDERED: PRENATAL VITAMIN 1 TAB PO SCH (08:00)
[2018-11-21 10:46] LABS: Hematocrit (blood only) 34.6 % (37-47); Hemoglobin 12.4 g/dL (12.0-16.0); Mean Corpuscular Hgb Conc 35.8 g/dL (32-36); Mean Corpuscular Volume 88.3 fL (80-100); RDW Coefficient of Variation 12.6 % (11.5-14.5); RDW Standard Deviation 40.1 fL (36.4-46.3); Red Blood Count 3.92 M/uL (4.2-5.4); White Blood Count 19.68 K/uL (4.8-10.8)
[2018-11-21 11:04] LABS: Platelet Count 90 K/uL (130-400)
[2018-11-21 11:12] LABS: Albumin Level 2.1 gm/dl (3.4-5.0); BUN Creatinine Ratio 16.7 (10-20); Calcium 9.4 mg/dl (8.5-10.1); Creatinine Clr Calc Pharmacy 115.7 ml/min; Est GFR (African American) 140.7; Est GFR (Non-African American) 121.4; Potassium 3.3 mmol/L (3.5-5.1)
[2018-11-21 11:14] LABS: Albumin Globulin Ratio 0.6 (0.9-2); Bilirubin,Total 0.6 mg/dl (0.2-1); Globulin 3.5 gm/dl (2.5-4.0); Total Protein 5.6 gm/dl (6.4-8.2)
[2018-11-21 12:15] LABS: Fibrinogen 321 mg/dl (184-400)
--- NOTE | 2018-11-21 12:38 | Anesthesia Procedure Note ---
Date of Service November 21, 2018 Anesthesia Post Epidural Note Vital Signs Vital Signs: Temp Pulse Resp BP Pulse Ox 36.6 C 66 16 109/60 93 11/21/18 12:24 11/21/18 11:06 11/21/18 12:24 11/21/18 11:06 11/21/18 12:24 Pain Intensity Left Abdomen: Pain Intensity: 1 Notes Mental Status: alert / awake / arousable Nausea / Vomiting: adequately controlled Pain: adequately controlled Airway Patency, RR, SpO2: stable & adequate BP & HR: stable & adequate Hydration State: stable & adequate Neuraxial Anesthesia: was administered and sensory block is resolving Anesthetic Complications: no major complications apparent Epidural: See Notes
[2018-11-24 16:06] LABS: Interpretation DNR; Toxoplasma Gondii IgM <8.00 AU/mL (<8.00)
== END 2018-11-21 13:15 | disposition home or self-care (01) | DRG 805 ==
LOC: 4S1 17:21
DX: O36.4XX0 Maternal care for intrauterine death, not applicable or unspecified; Z87.891 Personal history of nicotine dependence; Z3A.24 24 weeks gestation of pregnancy; R50.2 Drug induced fever; O9A.22 Injury, poisoning and certain other consequences of external causes complicating childbirth; D65 Disseminated intravascular coagulation [defibrination syndrome]; Y92.239 Unspecified place in hospital as the place of occurrence of the external cause; O99.12 Other diseases of the blood and blood-forming organs and certain disorders involving the immune mechanism complicating childbirth; T47.1X5A Adverse effect of other antacids and anti-gastric-secretion drugs, initial encounter; Z37.1 Single stillbirth; R19.7 Diarrhea, unspecified

== ENCOUNTER 2019-12-29 13:07 | Inpatient (IN) ==
[2019-12-29] MEDS ORDERED: LACTATED RINGER'S 1,000 ML IV PRN (13:52)
[2019-12-29] MEDS ORDERED: OXYTOCIN 30 UNITS/500 ML BAG IV PRN ×2 (13:52→17:30)
[2019-12-29 14:37] LABS: Hematocrit (blood only) 35.2 % (37-47); Mean Corpuscular Hemoglobin 30.8 pg (25-34); Mean Corpuscular Volume 90.3 fL (80-100); Mean Platelet Volume 11.4 fL (7.4-10.4); Platelet Count 131 K/uL (130-400); RDW Coefficient of Variation 12.6 % (11.5-14.5); RDW Standard Deviation 41.6 fL (36.4-46.3); White Blood Count 8.55 K/uL (4.8-10.8)
[2019-12-29 14:49] LABS: Mean Corpuscular Hgb Conc 34.1 g/dL (32-36)
[2019-12-29] MEDS ORDERED: fentaNYL citrate 100 MCG/2 ML VIAL ONE (15:27)
[2019-12-29] MEDS ORDERED: ePHEDrine sulfate 50 MG/ML AMP ONE (15:27)
[2019-12-29] MEDS ORDERED: BUPIVACAINE 0.25% 30 ML VIAL ONE (15:27)
--- NOTE | 2019-12-29 15:27 | Anesthesiology Consultation ---
Date of Service December 29, 2019 Assessment & Plan Chart Review Chart Review: Acceptable Risk for Surgery and Patient NOT seen in Pre Admission Testing Consults Requested none ASA ASA2 Proposed Anesthesia Anesthesia Type: Labor Epidural and CSE History Height/Weight Height: 5 ft 2 in Weight: 77.111 kg Allergies Allergy/AdvReac Type Severity Reaction Status Date / Time codeine Allergy Mild Gastrointestinal Verified 12/27/19 07:03 Upset Medications Home Medications Medication Instructions Recorded Confirmed Last Taken aspirin [Aspirin Low Dose] 81 mg PO DAILY 12/01/19 12/29/19 12/28/19 19:00 prenat.vits,shalom,zxu-ghvo-eaocr 1 tab PO DAILY 12/01/19 12/29/19 12/28/19 19:00 [ Vitamin] sertraline 25 mg PO DAILY 12/01/19 12/29/19 12/28/19 19:00 Past Medical History Medical History History of gastric ulcer History of stillbirth No significant past medical history Varicella Exercise / Class Metabolic Activity II 4-5 Yardwork/Stairs/Walk up hill Past Family History Family History Grandmother (Maternal) Ovarian cancer Mother Hypothyroidism Multiple gestation Past Surgical History Surgical History S/P colonoscopy S/P endoscopy S/P wisdom tooth extraction Past Anesthesia History No Hx of Anesthesia Complications and No Family Hx of Anesthesia Complications History of PONV No Hx of PONV and No Hx of Motion Sickness Social History Smoking Status: Never smoker Hx Alcohol Use: No Hx Substance Use: No substance use type: does not use Physical Exam Vital Signs Last Vital Signs Temp 36.7 C 12/29/19 13:21 Pulse 100 H 12/29/19 13:28 Resp 18 12/29/19 13:21 BP 119/74 12/29/19 13:28 Testing Laboratory Results 12/29/19 14:05
[2019-12-29] MEDS ORDERED: fentaNYL 2MCG/ML ROPIVACAINE 1.25MG/ML 100 ML BAG EPI ONE (15:28)
[2019-12-29] MEDS ORDERED: ONDANSETRON INJ 2 MG/ML 2 ML VIAL IV PRN (16:13)
[2019-12-29] MEDS ORDERED: ePHEDrine sulfate 50 MG/ML AMP IV PRN (16:13)
[2019-12-29] MEDS ORDERED: fentaNYL 2MCG/ML ROPIVACAINE 1.25MG/ML 100 ML BAG EPI PRN (16:13)
[2019-12-29] MEDS ORDERED: NALOXONE HCL 1 MG in SODIUM CHLORIDE 0.9% 1000ML 1,000 ML IV PRN (16:13)
[2019-12-29] MEDS ORDERED: PROMETHAZINE HCL 25 MG in SODIUM CHLORIDE 0.9% 50 ML IV PRN (16:13)
[2019-12-29] MEDS ORDERED: diphenhydrAMINE 50 MG/ML VIAL IV PRN (16:13)
[2019-12-29] MEDS ORDERED: NALOXONE HCL 0.4 MG/1 ML VIAL/CARP IV PRN (16:13)
[2019-12-29] MEDS ORDERED: bisacodyL 10 MG SUPP PR PRN (17:30)
[2019-12-29] MEDS ORDERED: HYDROCORTISONE ACETATE 25 MG SUPP PR PRN (17:30)
[2019-12-29] MEDS ORDERED: DIPHTHERIA/TETANUS/PERTUSSIS 0.5 ML SYR/VIAL IM ONE (17:30)
[2019-12-29] MEDS ORDERED: SUPERCREAM 0.870% 15 GM JAR EXT PRN (17:30)
[2019-12-29] MEDS ORDERED: oxyCODONE/ACETAMINOPHEN 5mg/325mg TAB PO PRN (17:30)
[2019-12-29] MEDS ORDERED: ACETAMINOPHEN W/CODEINE #3 1 TAB PO PRN (17:30)
[2019-12-29] MEDS ORDERED: BENZOCAINE 20% AER SPR 82.5 GM CAN EXT PRN (17:30)
[2019-12-29] MEDS ORDERED: ACETAMINOPHEN 325 MG TAB PO PRN (17:30)
--- NOTE | 2019-12-29 17:45 | Anesthesia Procedure Note ---
Date of Service December 29, 2019 Anesthesia Post Epidural Note Vital Signs Vital Signs: Temp Pulse Resp BP Pulse Ox 36.7 C 89 18 124/67 100 12/29/19 13:21 12/29/19 17:34 12/29/19 13:21 12/29/19 17:34 12/29/19 16:50 Notes Mental Status: alert / awake / arousable Nausea / Vomiting: adequately controlled Pain: adequately controlled Airway Patency, RR, SpO2: stable & adequate BP & HR: stable & adequate Hydration State: stable & adequate Neuraxial Anesthesia: was administered and sensory block is resolving Anesthetic Complications: no major complications apparent Epidural: Removed without complications and With tip intact
[2019-12-29] MEDS: IBUPROFEN 600 MG TAB PO PRN (19:41)
[2019-12-29] MEDS: DOCUSATE SODIUM 100 MG CAP PO SCH (20:08)
[2019-12-30] MEDS: IBUPROFEN 600 MG TAB PO PRN ×4 (01:21→19:45)
--- NOTE | 2019-12-30 02:05 | Operative Report (OR) ---
DATE OF OPERATION: 12/29/2019 DELIVERY NOTE The patient is a 3, para 2. She had a stillborn at 26 weeks. Her blood type is A positive, vaginal beta strep negative, was admitted at 38 weeks 2 days, admitted with ruptured membranes. She was about 3-4 cm on admission. She worked with her contractions. Eventually, it became painful,she had an epidural. Soon after the epidural, she was fully dilated. She pushed for less than an hour, pushed out a live male via right occiput anterior position over an intact perineum. Infant was suctioned through the mouth and the nose. Cord was allowed to pulse for a minute, then clamped, cut by the father. Cord blood was taken. With IV Pitocin running, the placenta was removed intact. Inspection of the perineum revealed a first degree laceration at about 5 o'clock in the vaginal opening. A suture was placed above the vaginal defect and vaginal mucosa was approximated out to beyond the hymenal ring with a heavy Vicryl. Then a deep suture of Vicryl was used to approximate the bulbocavernosus muscle, separate deep suture was used to approximate the rectovaginal septum and a second deep suture was used to approximate the perineal body, then a running subcuticular suture was used to approximate the perineal skin edges. Vag examination including rectovaginal examination revealed good approximation, no stitches through the rectum and hemostasis was good. The patient tolerated the procedure well. Estimated blood loss 200 mL. I attest to the content of the Intraoperative Record and any orders documented therein. Any exception s are noted below.
[2019-12-30 06:40] LABS: Hematocrit (blood only) 33.8 % (37-47); Hemoglobin 11.3 g/dL (12.0-16.0); Mean Corpuscular Hemoglobin 30.6 pg (25-34); Mean Corpuscular Hgb Conc 33.4 g/dL (32-36); Mean Corpuscular Volume 91.6 fL (80-100); Platelet Count 120 K/uL (130-400); RDW Coefficient of Variation 12.8 % (11.5-14.5); RDW Standard Deviation 42.7 fL (36.4-46.3); Red Blood Count 3.69 M/uL (4.2-5.4); White Blood Count 9.29 K/uL (4.8-10.8)
[2019-12-30] MEDS: PRENATAL VITAMIN 1 TAB PO SCH (08:00)
[2019-12-30] MEDS: DOCUSATE SODIUM 100 MG CAP PO SCH ×2 (08:00→19:45)
--- NOTE | 2019-12-30 08:03 | Obstetrical Progress Note ---
Date of Service December 30, 2019 Assessment & Plan Admission and Anticipated Discharge Date Admission Date: December 29, 2019 Physical Exam Physical Exam: abdomen soft and non tender ambulating well no calf tenderness vaginal bleeding scant hgb 11.3 Results & Data ([facility]) Vital Signs (Past 12 Hours) Vital Signs Temp Pulse Resp BP Pulse Ox 12/30/19 04:00 36.8 C 80 16 111/72 97 12/29/19 23:40 36.7 C 82 16 113/69 97
[2019-12-30] MEDS: SERTRALINE HCL 50 MG TABLET PO SCH (08:51)
[2019-12-30] MEDS ORDERED: bisacodyL 5 MG TABEC PO SCH (20:00)
[2019-12-31] MEDS: IBUPROFEN 600 MG TAB PO PRN ×3 (02:45→09:44)
[2019-12-31 06:23] LABS: Hemoglobin 11.1 g/dL (12.0-16.0)
[2019-12-31] MEDS: DOCUSATE SODIUM 100 MG CAP PO SCH (08:06)
[2019-12-31] MEDS: PRENATAL VITAMIN 1 TAB PO SCH (08:06)
[2019-12-31] MEDS: SERTRALINE HCL 50 MG TABLET PO SCH (08:08)
--- NOTE | 2019-12-31 10:11 | Obstetrical Progress Note ---
Date of Service December 31, 2019 Assessment & Plan (1) Normal course: Pt doing well No complaints disch home with instructions Subjective Ambulation: ambulating normally Voiding: no voiding problems Passing Gas:: Yes Diet Tolerance:: regular diet Lochia:: Small Feeding Type:: breast feeding Review of Systems All systems reviewed & are unremarkable except as noted in HPI & below Physical Exam Constitutional WD/WN, vitals as above well developed and well nourished Eyes PERRL, conjunctivae normal, anicteric sclerae Neck trachea midline, no thyromegaly Respiratory normal respiratory effort, lungs clear to auscultation Auscultation: no crackles, no rales and no wheezes Cardiovascular RRR, no murmur, no edema Gastrointestinal (Abdomen) normal bowel sounds, soft, nontender, no hepatosplenomegaly Uterus is below umbilicus Musculoskeletal no cyanosis or clubbing, extremities motor strength 5/5 Skin no rashes, warm and dry Neurologic patellar DTR's 2+ bilat, sensation intact Psychiatric A+Ox3, euthymic affect Genitourinary normal external appearance Results & Data ([facility]) Vital Signs (Past 12 Hours) Vital Signs Temp Pulse Resp BP 12/31/19 08:05 36.8 C 79 16 121/80 12/30/19 23:30 36.7 C 78 18 118/71
== END 2019-12-31 11:37 | disposition home or self-care (01) | DRG 807 ==
LOC: OPB 13:07 → 4S1 13:08 → 4S2 19:50